=== PATIENT | male | born 1965 | race Caucasian/White ===

== ENCOUNTER 2016-12-22 21:21 | Emergency (ER) | payer MEDICARE, OTHER ==
--- NOTE | 2016-12-22 22:45 | ED ---
General Adult HPI - General Chief complaint: Abdominal Pain Stated complaint: Abd pain Source: patient, family, RN notes reviewed Mode of arrival: ambulatory Limitations: physical limitation - History of Present Illness Initial comments: Chief complaint and history of present illness this is a 51-year-old male who is deaf. He is here with his sister who helps translate for him. He is playing sports today when a softball hit him on his left upper quadrant area. Small bruise noted. Sister wants to get this area checked out. The patient had a splenectomy over 20 years ago. Cyst that states a splenectomy was done because it become enlarged. No fever no signs of infection. - Related Data Home Medications Medication Instructions Recorded Confirmed Aspirin 81 mg PO DAILY 08/24/14 12/22/16 Atenolol 100 mg PO HS 08/24/14 12/22/16 Multivitamin/Iron/Folic Acid 1 tab PO DAILY 08/24/14 12/22/16 [Centrum Complete Multivit Tab] Omeprazole [PriLOSEC] 20 mg PO HS 08/24/14 12/22/16 Tamsulosin HCl [Flomax] 0.4 mg PO BID 08/24/14 12/22/16 Cyclobenzaprine [Flexeril] 10 mg PO HS 03/21/15 12/22/16 Docusate [Colace] 100 mg PO HS 03/21/15 12/22/16 Lisinopril [Zestril] 10 mg PO DAILY 03/21/15 12/22/16 Loratadine [Claritin] 10 mg PO HS 03/21/15 12/22/16 Allergies Allergy/AdvReac Type Severity Reaction Status Date / Time No Known Allergies Allergy Verified 12/22/16 22:01 Review of Systems ROS Statement: Those systems with pertinent positive or pertinent negative responses have been documented in the HPI. Review of systems; through his sister he had no complaints. Not even complaining of the bruise on his left upper quadrant. No fever. No change in appetite. Past medical problems GERD, , hyperlipidemia, hypertension, prostate disorder, spinal stenosis. Surgeries eye surgery and splenectomy. Also has a history of cerebral palsy. Family history noncontributory no known ALLERGIES. Nonsmoker nondrinker ROS Other: All systems not noted in ROS Statement are negative. Past Medical History Past Medical History: GERD/Reflux, Hearing Disorder / Deafness, Hyperlipidemia, Hypertension, Prostate Disorder Additional Past Medical History / Comment(s): spinal stenosis, deaf, hepatitis History of Any Multi-Drug Resistant Organisms: None Reported Additional Past Surgical History / Comment(s): splenectomy, eye surgery Past Psychological History: No Psychological Hx Reported Smoking Status: Never smoker Past Alcohol Use History: None Reported Past Drug Use History: None Reported General Exam - General Exam Comments Initial Comments: General: The patient is awake and alert, in no distress, and does not appear acutely ill. Uses sign language for his sister to interpret. Vital signs temperature 97.8 pulse 104 respiratory rate 20 pulse ox 95% room air blood pressure 163/77 Eye: Pupils are equal, , extra-ocular movements are intact; there is normal conjunctiva bilaterally. No signs of icterus. Ears, nose, mouth and throat: There are moist mucous membranes Neck: The neck is supple, there is no tenderness Cardiovascular: There is a regular rate and rhythm. No murmur, rub or gallop is appreciated. Respiratory: Lungs are clear to auscultation, respirations are non-labored, breath sounds are equal. No wheezes, stridor, rales, or rhonchi. Gastrointestinal: Soft, non-distended, non-tender abdomen without masses or organomegaly noted. There is no rebound or guarding present. No CVA tenderness. Bowel sounds are unremarkable. Small area of bruising near his surgical scar post splenectomy. No pain with deep palpation no masses palpable. No appreciable hematoma appreciated. Normal bowel sounds. Back: No back pain Normal ROM, no tenderness, chronic nonpitting swollen legs for 10 years per sister. Neurological: Sister has not noticed any change in neurological symptoms.. Patient does have a history of cerebral palsy though. Skin: Bruise, ecchymotic area near splenectomy incision site. Splenectomy was over 20 years ago. Limitations: physical limitation Course Vital Signs 12/22/16 21:43 Temperature 97.8 F Pulse Rate 104 H Respiratory 20 Rate Blood Pressure 163/77 O2 Sat by Pulse 95 Oximetry Medical Decision Making - Medical Decision Making Cyst was told to examine and reexamined the area. There is no fever or signs of infection. I discussed stress with the sister that she have fever or any signs of infection having had a splenectomy all the more important for him to be seen by family physician or emergency room immediately. Disposition Clinical Impression: Superficial bruising of abdominal wall Disposition: HOME SELF-CARE Condition: Stable Instructions: Contusion in Adults (ED) Additional Instructions: Apply ice on again off again for 1 day and then heat. Tylenol for discomfort. Follow-up family physician emergency room as needed Referrals: Marko Gutierres DO [Primary Care Provider] - 1-2 days Time of Disposition: 22:46
[2016-12-22 22:59] VITALS: BP 138/72; PULSE 90; RESP 18; TEMP 98.7
== END 2016-12-22 22:59 | disposition home or self-care (01) ==
LOC: EC 21:21
DX: S30.1XXA Contusion of abdominal wall, initial encounter (principal); H91.90 Unspecified hearing loss, unspecified ear; I10 Essential (primary) hypertension; K21.9 Gastro-esophageal reflux disease without esophagitis; N42.9 Disorder of prostate, unspecified; G80.9 Cerebral palsy, unspecified; Z79.82 Long term (current) use of aspirin; Z79.899 Other long term (current) drug therapy; Z90.81 Acquired absence of spleen; W21.07XA Struck by softball, initial encounter; Y92.89 Other specified places as the place of occurrence of the external cause
CPT/HCPCS: 99283

== ENCOUNTER → 2017-05-12 | Outpatient (CLI) | payer MEDICARE, OTHER ==
--- NOTE | 2017-05-12 17:05 | XR ---
Cervical spine HISTORY: Neck pain 5 views of the cervical spine and 6 images Comparison the cervical spine MRI dated 07/17/2014 There is multilevel facet arthropathy. Hypertrophic changes are again noted, loss of disc height is p resent at the intervertebral levels. Vertebral body height and alignment is stable. Multilevel forami nal encroachment is present. IMPRESSION: Similar findings, degenerative disc disease, facet arthropathy, multilevel foraminal encr oachment.
== END | disposition home or self-care (01) ==
LOC: RADXRMAIN 16:39
PROVIDERS: ATTEND Family Medicine
DX: M50.30 Other cervical disc degeneration, unspecified cervical region (principal); M46.82 Other specified inflammatory spondylopathies, cervical region
CPT/HCPCS: 72050

== ENCOUNTER → 2017-07-21 | Outpatient (CLI) | payer MEDICARE, OTHER ==
--- NOTE | 2017-07-21 17:06 | CT ---
EXAMINATION TYPE: CT cervical spine wo con DATE OF EXAM: 07/21/2017 COMPARISON: NONE HISTORY: Neck pain with numbness going down bilateral shoulders and arms. CT DLP: 819.5 mGycm. Automated Exposure Control for Dose Reduction was Utilized. TECHNIQUE: CT scan of the cervical spine is obtained without contrast, axial images are obtained, sa gittal and coronal reformatted images are also reviewed. FINDINGS: Cervical spine is visualized in its entirety from C1 through upper thoracic levels, demonst rates satisfactory alignment without evidence of acute fracture or dislocation. Prevertebral soft ti ssue appears within normal limits. The C1-C2 articulation is within normal limits on the coronal severiano ges. There is multifocal moderate degenerative change of the cervical spine. This is displayed is uncovert ebral hypertrophy, facet arthropathy, anterior osteophyte, intervertebral disc space narrowing and en dplate sclerosis. This is most severe at C2-C5. There is a focal reversal of the usual cervical lordo sis (mild degree) at these levels. Vacuum disc disease is also seen at C3-C4. The facets maintain alignment. Small posterior disc osteophyte complexes are seen at C2-C3, C3-C4 and C4-C5. There is resultant mild spinal canal stenosis at these levels. Additionally on the left at C5 -C6 there is mild neural foraminal narrowing and moderate neural foraminal narrowing at C4-C5 and C5- C6 on the right. The lung apices are well aerated. Incidentally the anterior arch of C1 appears to be fused with the c livus and may be related to old remote injury or degenerative change. IMPRESSION: 1. There is no acute fracture or malalignment evident in the cervical spine. 2. Moderate multilevel degenerative disc disease of the cervical spine resulting in mild spinal canal stenosis from C2 through C5. Variable degree of neuroforaminal stenosis as described above. 3. Reversal usual cervical lordosis from C2 through C5, likely degenerative in nature. 4. Evaluation for focal disc herniation is better evaluated with MRI. MR could be performed for furth er evaluation if clinically indicated.
== END | disposition home or self-care (01) ==
LOC: RADCTMAIN 15:00
PROVIDERS: ATTEND Orthopaedic Surgery
DX: M48.02 Spinal stenosis, cervical region (principal); M50.00 Cervical disc disorder with myelopathy, unspecified cervical region; M99.71 Connective tissue and disc stenosis of intervertebral foramina of cervical region
CPT/HCPCS: 72125

== ENCOUNTER → 2017-10-20 | Outpatient (CLI) | payer MEDICARE, OTHER | END | disposition home or self-care (01) | LOC: LABWHC1 13:36 | PROVIDERS: ATTEND Orthopaedic Surgery | DX: Z01.812 Encounter for preprocedural laboratory examination (principal) | CPT/HCPCS: 87070 ==

== ENCOUNTER → 2018-08-30 | Outpatient (CLI) | payer OTHER, MEDICARE ==
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
== END | disposition home or self-care (01) ==
LOC: RADCTMAIN 16:35
PROVIDERS: ATTEND Family Medicine
DX: S06.0X9A Concussion with loss of consciousness of unspecified duration, initial encounter (principal)
CPT/HCPCS: 70450

== ENCOUNTER → 2020-08-28 | Outpatient (CLI) | payer MEDICARE, OTHER ==
--- NOTE | 2020-08-28 16:13 | XR ---
AP pelvis HISTORY: Low back pain frontal view of the pelvis submitted on 2 images correlated prior exam 03/21/2015 There is no interval change. Degenerative disc changes are noted in the lower lumbar spine. Joint spa alec, alignment, bone mineralization are normal. impression: Normal pelvis.
--- NOTE | 2020-08-28 16:16 | XR ---
Lumbar sacral spine HISTORY: Low back pain 5 views of lumbosacral spine There is no evident spondylolysis or spondylolisthesis. Suspect L5 is sacralized. Loss of disc height at L4-5 is present with associated vacuum phenomenon, lumbar vertebral bodies show preserved height and bone mineralization. There is hypertrophic spondylosis. Sclerosis is present in the posterior julianne ments. IMPRESSION: Degenerative disc disease, facet arthropathy, transitional vertebral body suspected, abhinav elate with plain film prior to any intervention.
== END ==
LOC: RADXRMAIN 12:56
PROVIDERS: ATTEND Family Medicine
DX: M51.37 Other intervertebral disc degeneration, lumbosacral region (principal); M47.817 Spondylosis without myelopathy or radiculopathy, lumbosacral region
CPT/HCPCS: 72110; 72170

== ENCOUNTER → 2022-02-14 | Outpatient (CLI) | payer MEDICARE, OTHER ==
--- NOTE | 2022-02-14 14:12 | CT ---
EXAMINATION TYPE: CT abdomen pelvis wo con DATE OF EXAM: 02/14/2022 COMPARISON: 03/21/2015 HISTORY: Upper abdominal pain, possible pancreatitis CT DLP: 1836.3 mGycm Examination of the solid and hollow viscera is limited given the lack of contrast. FINDINGS: LUNG BASES: No evidence for nodule. No evidence for infiltrate. LIVER/GB: The gallbladder is surgically absent. No space-occupying hepatic lesion. PANCREAS: No pancreatic mass identified. No inflammatory process seen. SPLEEN: No evidence for splenomegaly. No intrasplenic lesions seen. ADRENALS: No adrenal nodules identified. No evidence for thickening. KIDNEYS: 3.3 cm hypoattenuating lesion left kidney likely reflects a cyst. 4 mm nonobstructing calcul us upper pole left kidney. No hydronephrosis. BOWEL: Appendix has a normal appearance. No evidence of bowel obstruction. No inflammatory process. Lymph nodes: No evidence for adenopathy greater than 1 cm. Abdominal aorta: Atheromatous changes seen. No evidence for aneurysm. Genital organs: No significant abnormality. Other: No significant abnormality. IMPRESSION: 1. No CT evidence for pancreatitis at this time however correlate with amylase and lipase. 2. Nonobstructing nephrolithiasis.
== END | disposition home or self-care (01) ==
LOC: RADCTMAIN 11:49
PROVIDERS: ATTEND Family Medicine
DX: K85.90 Acute pancreatitis without necrosis or infection, unspecified (principal); N20.0 Calculus of kidney
CPT/HCPCS: 74176

== ENCOUNTER → 2022-05-29 | Outpatient (CLI) | payer MEDICARE, OTHER ==
[2022-05-29 22:36] LABS: HCT 44.7 % (39.6-50.0); HGB 14.5 g/dL (13.0-17.0); MCH 26.9 pg (27.0-32.0); MCHC 32.4 g/dL (32.0-37.0); MCV 82.8 fL (80.0-97.0); Mean Platelet Volume 10.9 fL (9.5-12.2); NRBC Per 100 WBC 0 /100 WBCS (0.0-0.0); Platelet Count 376 X 10*3/uL (140-440); RDW 16.8 % (11.5-14.5)
[2022-05-30 02:44] LABS: African American GFR (CKD) 86.8 (60.0-200.0); Anion Gap 12.3 mmol/L (10.00-18.00); Blood Urea Nitrogen 13.5 mg/dL (9.0-27.0); Carbon Dioxide 26.3 mmol/L (20.0-27.5); Non-African American GFR(CKD) 74.9 (60.0-200.0); Potassium 4.2 mmol/L (3.5-5.5)
== END | disposition home or self-care (01) ==
LOC: LABPAT 15:32
PROVIDERS: ATTEND Internal Medicine Interventional Cardiology
DX: Z01.812 Encounter for preprocedural laboratory examination (principal); R07.9 Chest pain, unspecified
CPT/HCPCS: 36415; 80051; 82565; 84520; 85027

== ENCOUNTER 2022-06-16 07:33 | Day surgery (SDC) | payer MEDICARE, OTHER ==
[2022-06-13 10:15] VITALS: BMI 42.2
[~2022-06-16 07:33] MED LIST: ALPRAZolam 0.25 MG TAB PO PRN; ALPRAZolam 0.5 MG TAB PO PRN; ASPIRIN 325 MG TAB PO STA; ATORVASTATIN 80 MG TAB PO STA; HEPARIN SODIUM,PORCINE 10,000 UNIT in SODIUM CHLORIDE 0.9% 1,000 ML IRRIGATION PRN; HEPARIN SODIUM,PORCINE 2,500 UNIT in SODIUM CHLORIDE 0.9% 250 ML IRRIGATION PRN; NITROGLYCERIN SL TABS 0.4 MG TAB SUBLINGUAL PRN; SODIUM CHLORIDE 0.9% 1,000 ML in EMPTY BAG 1 BAG IV SCH
[2022-06-16] MEDS ORDERED: ASPIRIN 325 MG TAB PO ONE (07:50)
[2022-06-16] MEDS ORDERED: ACETAMINOPHEN TAB 500 MG TAB PO ONE (07:51)
[2022-06-16] MEDS ORDERED: SODIUM CHLORIDE 0.9% 1,000 ML IV ONE (07:56)
[2022-06-16 08:03] VITALS: RESP 16; TEMP 98
[2022-06-16] MEDS ORDERED: VERAPAMIL 2.5 MG/ML 2 ML AMP ONE (09:24)
[2022-06-16] MEDS ORDERED: LIDOCAINE 1% INJ 10MG/ML (30 ML VIAL-PF) SQ ONE (09:43)
[2022-06-16] MEDS ORDERED: MIDAZOLAM 2 MG/2 ML VIAL IV ONE (09:43)
[2022-06-16] MEDS ORDERED: HEPARIN SODIUM 1,000 UN/ML (10ML VL) ONE (09:49)
[2022-06-16] MEDS ORDERED: fentaNYL (PF) 50 MCG/ML 2 ML AMP ONE (09:49)
[2022-06-16] MEDS ORDERED: VERAPAMIL SYRINGE (5 MG/10 ML) INTRAARTER ONE (09:50)
[2022-06-16] MEDS ORDERED: fentaNYL (PF) 50 MCG/ML 2 ML AMP IV ONE ×2 (09:50)
[2022-06-16] MEDS ORDERED: HEPARIN SODIUM 1,000 UN/ML (10ML VL) IV ONE (09:51)
[2022-06-16] MEDS ORDERED: IOPAMIDOL-370 125ML BTL INJ ONE ×2 (10:13)
[2022-06-16] MEDS ORDERED: RX INFO: IV CONTRAST WAS GIVEN 1 EACH MISC MISCELLANE PRN (10:17)
--- NOTE | 2022-06-16 10:21 | P.PCN ---
Date of Procedure: 06/16/22 Operative Findings: CARDIAC CATHETERIZATION PERFORMING PHYSICIAN: Avery Verde MD, RPVI PROCEDURE PERFORMED: 1. Selective right and left coronary angiogram 2. Left heart catheterization 3. An aortic root angiogram INDICATION: This is a 56-year-old gentleman with hypertension and dyslipidemia who was experiencing symptoms of chest discomfort. He underwent myocardial perfusion imaging stress to stent that revealed an inferior ischemia. In the light of that heart catheterization was advised COMPLICATION: None APPROACH: Right radial artery LEVEL OF SEDATION: Moderate with a sedation length of 22 minutes PROCEDURE DESCRIPTION: After obtaining an informed consent, the patient was brought to cardiac energy systems laboratory director. Local anesthesia was performed using lidocaine subcutaneously. The right radial artery was cannulated using Seldinger technique, the guidewire passed easily, following that we advanced a 5-Slovenian sheath dilator assembly, the wire and dilator were removed and sheath was flushed. Following that, 2 mg of verapamil along with 5000 unit heparin were given. Selective right and left coronary angiogram using a 6-Slovenian JR4 and JL 3.5 catheters. The left circumflex artery is coming from the right coronary cusp. Multipurpose catheter was used for that. Following that we did left heart catheterization using 6-Slovenian pigtail catheter. Because we had difficulties opacifying the left circumflex I did an aortic root angiogram The procedure was completed there was no complication. SELECTIVE CORONARY ANGIOGRAM: The right coronary artery: Large caliber vessel and nondominant dominant vessel. The RCA is aneurysmal distally but no occlusive disease seen. Left main: Not accessed. The left circumflex is coming from the right coronary cusp The left circumflex: Large caliber vessel. The LCx has an anomalous origin from the right coronary cusp. It has mild disease only. The left anterior descending artery: Large caliber vessel. The LAD is angiographically normal. Gives rises into 2 diagonal branches the appeared to be angiographically normal HEMODYNAMICS: LVEDP was 12 mmHg was no significant gradient across aortic valve CONCLUSION: 1. Mild nonobstructive coronary artery disease. 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 Normal left-sided filling pressure POSTPROCEDURE MANAGEMENT: Medical treatment and follow-up with the patient
[2022-06-16] MEDS ORDERED: SODIUM CHLORIDE 0.9% 1,000 ML IV SCH (10:30)
[2022-06-16 18:39] VITALS: BP 128/68; PULSE 86
== END 2022-06-16 15:40 | disposition home or self-care (01) ==
LOC: CATHCVL 07:33
PROVIDERS: ATTEND Internal Medicine Interventional Cardiology
DX: I25.10 Atherosclerotic heart disease of native coronary artery without angina pectoris (principal); R07.89 Other chest pain; E78.5 Hyperlipidemia, unspecified; I10 Essential (primary) hypertension
CPT/HCPCS: 93458; C1769; C1894; J2250; J2001; J3010; J1644; Q9967

== ENCOUNTER → 2023-07-08 | Outpatient (CLI) | payer MEDICARE, OTHER ==
--- NOTE | 2023-07-08 11:54 | P.SLEEP ---
History of Present Illness DATE: 07/08/2023 CONSULTATION/NEW PATIENT EVALUATION HISTORY OF PRESENT ILLNESS/SLEEP-WAKE EVALUATION: 57-year-old gentleman had been evaluated in the sleep center for possible obstructive sleep apnea hypopnea syndrome. Patient is deaf, we will use straddle buggy operator to do history and physical and to explain patient the plan. SLEEP SCHEDULE: Usually sleep schedule from 10 PM to 6 AM. FALLING ASLEEP: Sometimes patient has difficulties with falling asleep, no TV in bedroom. DURING SLEEP: Patient usually sleeps on the side position and has witnessed episodes of stop breathing during the sleep according to his sister. Patient has loud snoring. Patient wakes up from sleep at least once with nocturia. No history of hypnogogical hallucinations, sleep paralysis, or cataplexy. DURING THE DAY/WAKE STATE: Patient feels sleepiness during the day. [place] sleepiness scale is significantly increased to 14. Patient takes at least 1 nap in the evening. PAST MEDICAL HISTORY: Hypertension, acid reflux, BPH, anxiety. PAST SURGICAL HISTORY: Recent low lumbar spine surgery, cholecystectomy, neck surgery, splenectomy. MEDICATIONS: Pepcid, atenolol 10 mg once a day, Flexeril, hydrochlorothiazide, iron supplement, Tamsulosin. SOCIAL HISTORY: Negative for smoking or using alcohol. FAMILY HISTORY: Hypertension. REVIEW OF SYSTEMS: Snoring, multiple awakenings from sleep, sleepiness during the day. No fevers. No double vision. No recent chest pain. No shortness of breath. No abdominal pain. No bleeding episodes. No blood in urine. No seizure episodes. PHYSICAL EXAMINATION: GENERAL: A pleasant patient without any distress. VITAL SIGNS: BP 114/75, HR 78, RR 16, weight 280 pounds, height 5 foot 9 inches, body mass index 41.3. HEENT: PERRLA, EOMI. Evaluation of oropharynx showed tongue protrudes midline, low position of soft palate Mallampati 4. NECK: Supple. No JVD. Thyroid is not palpable. 19.5 inches in circumference. LUNGS: Clear to percussion and to auscultation. Good air exchange. No wheezing or rhonchi. HEART: S1, S2 regular. No murmurs, gallops or rubs. ABDOMEN: Soft and nontender. Bowel sounds are present. No organomegaly appreciated. EXTREMITIES: No clubbing or cyanosis. SALMON TROLL FISHER: Awake, alert, and oriented x3. Cranial nerves 2 to 7 intact. There is no fasciculation or atrophy noted. No focal deficits observed. ASSESSMENT: 1. Loud snoring, witnessed episodes of stop breathing during the sleep, extremely low position of soft palate Mallampati 4, wide neck 19.5 inches in circumference, sleepiness [place] Sleepiness Scale is 14. Obstructive sleep apnea hypopnea syndrome. 2. Patient is deaf. 3. Obesity BMI 41.3. 4. Hypertension. 5 BPH. 6 . Acid reflux. 7. Status post recent low back surgery. 8. Status post cholecystectomy. 9 . Status post splenectomy in 1995. 10. Status post neck surgery. 11. Status post cyst removed from pericardium . PLAN: 1. Polysomnography for evaluation of patient's breathing during sleep. 2. CPAP/BiPAP titration if sleep study confirms obstructive sleep apnea- hypopnea syndrome. 3. Preferable position during sleep on the side. 4. No driving if patient feels any sleepiness. Patient is aware of civil and criminal liability for unsafe driving. 5. Sleep hygiene with regular sleep time for at least 7.5-8 hours. 6. Watching and losing weight. Thank you very much for referring this patient for consultation. Sincerely, Ad Terrazas MD, PhD, FAASM. 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 1 month hx of rt and left sided pain and pt communicating his heart hurt. recent testing done in [facility] office. recent elevated liver enzymes at [facility] ER) History of Any Multi-Drug Resistant Organisms: None Reported Past Surgical History: Cholecystectomy Additional Past Surgical History / Comment(s): splenectomy, eye surgery, cyst on rt side of heart removed. neck surgery w/screw Past Anesthesia/Blood Transfusion Reactions: No Reported Reaction Smoking Status: Never smoker - Past Family History Mother Family Medical History: Deep Vein Thrombosis (DVT) Additional Family Medical History / Comment(s): lymphedema in legs, blood clots in legs Father Family Medical History: Coronary Artery Disease (CAD), Diabetes Mellitus, Hyperlipidemia, Hypertension Additional Family Medical History / Comment(s): enlarged heart, rheumatic fever. was in the service. Medications and Allergies Home Medications Medication Instructions Recorded Confirmed Type Aspirin 81 mg PO DAILY 08/24/14 06/16/22 History Multivitamin/Iron/Folic Acid 1 tab PO DAILY 08/24/14 06/16/22 History [Centrum Complete Multivit Tab] Tamsulosin HCl [Flomax] 0.4 mg PO DAILY 08/24/14 06/16/22 History atenoloL 100 mg PO HS 08/24/14 06/16/22 History Cyclobenzaprine [Flexeril] 10 mg PO HS PRN 03/21/15 06/16/22 History Docusate [Colace] 100 mg PO HS 03/21/15 06/16/22 History Loratadine [Claritin] 10 mg PO HS 03/21/15 06/16/22 History lisinopriL [Zestril] 10 mg PO DAILY 03/21/15 06/16/22 History Famotidine [Pepcid] 20 mg PO HS 05/29/22 06/16/22 History Allergies Allergy/AdvReac Type Severity Reaction Status Date / Time No Known Allergies Allergy Verified 06/16/22 08:04 Sleep Note - Sleep Note Sleep Note: Temperature: Pulse Rate: Respiratory Rate: Blood Pressure: SpO2: Height: Weight: BMI: Neck Circumference:
== END ==
LOC: 3 N SLEEP 10:43
PROVIDERS: ATTEND Internal Medicine
DX: G47.33 Obstructive sleep apnea (adult) (pediatric) (principal); E66.9 Obesity, unspecified; I10 Essential (primary) hypertension; N40.0 Benign prostatic hyperplasia without lower urinary tract symptoms; H91.3 Deaf nonspeaking, not elsewhere classified; K21.9 Gastro-esophageal reflux disease without esophagitis; R06.83 Snoring; Z98.890 Other specified postprocedural states; Z90.49 Acquired absence of other specified parts of digestive tract; Z90.81 Acquired absence of spleen; Z68.41 Body mass index [BMI] 40.0-44.9, adult; G47.10 Hypersomnia, unspecified; Z79.899 Other long term (current) drug therapy; Z79.82 Long term (current) use of aspirin
CPT/HCPCS: 99211

== ENCOUNTER 2023-08-11 19:36 | Outpatient (CLI) | payer MEDICARE, OTHER ==
--- NOTE | 2023-08-18 14:56 | P.PCN ---
Description of Procedure: POLYSOMNOGRAPHY REPORT PROCEDURE(S)/DATE(S): Polysomnography 08/11/2023 CLINICAL: Patient has been seen in the sleep center for evaluation of obstructive sleep apnea-hypopnea syndrome. Please see my consultation. Sleep study has been done for evaluation of patient breathing during the sleep. PROCEDURE: The standard montage for clinical polysomnography included the electroencephalogram, the electrooculogram, the mentalis surface electromyography and Lead II cardiography. The respiratory battery consisted of measurements of nasal/buccal air flow, pressure transducer measurements from nose, thoracic and/or abdominal effort and intercostal surface electromyography. Video monitoring has been done to check for any parasomnia events. Nocturnal oxyhemoglobin saturations were obtained by finger oximetry. Step-echavarria titration with positive airway pressure was utilized to control the respiratory events, if necessary. RESULTS: During the diagnostic sleep study sleep efficiency was decreased to 75.9 %. Latency to sleep onset was extremely long 81.5 min. Sleep architecture showed stage NI oh was slightly short 4.1 %, Delta sleep was borderline 5.0 %, REM sleep was slightly decreased to 16.6 %. Respiratory channel showed 0 obstructive apneas, 0 mixed apneas, 4 central apneas, 32 hypopneas with lowest oxygen level 63%. Oxygen level was below normal range for 5.5 minutes. Total apnea hypopnea index was 5.9. Heart rate was in the range between 68 and 77, average 72. EMG showed 20.3 periodic limb movements per hour with 1.3 micro-arousals per hour. IMPRESSIONS: 1. Obstructive sleep apnea hypopnea syndrome in mild range. Patient presently symptoms of significant excessive daytime sleepiness with [place] Sleepiness Scale 14. 2. Periodic limb movements have been documented. Please see other impressions from consultation PLAN: 1. The patient will have AutoPAP treatment for correction of respiratory abnormalities during the sleep. 2. Losing weight program. 3. Sleep hygiene with regular time in bed for at least 7-1/2 hours. 4. No driving if feeling sleepiness. 5. Please check iron profile including ferritin level. Low level of iron may increase the risk for periodic limb movements. 6. I will see patient for follow-up visit to evaluate clinical response on treatment with CPAP, compliance with treatment and make any necessary adjustment related to mask fitting pressure and humidification. Thank you very much for allowing me to participate in the management of your patient. Sincerely, Ad Terrazas MD, PhD, FAASM. Diplomat of [place] [employer], Sleep Medicine Board by [place] [employer] [facility] [place]
== END 2023-08-12 06:00 | disposition home or self-care (01) ==
LOC: 3 N SLEEP 19:36
PROVIDERS: ATTEND Internal Medicine
DX: G47.33 Obstructive sleep apnea (adult) (pediatric) (principal); G47.61 Periodic limb movement disorder; G47.10 Hypersomnia, unspecified; Z79.82 Long term (current) use of aspirin
CPT/HCPCS: 95810

== ENCOUNTER 2023-08-25 18:11 | Emergency (ER) | payer MEDICARE, OTHER ==
--- NOTE | 2023-08-25 18:27 | ED ---
Back Pain HPI - General Source: patient, family Mode of arrival: wheelchair Limitations: language barrier <Madan Lopez - Last Filed: 08/25/23 18:26> - General Source: patient, family Mode of arrival: wheelchair Limitations: language barrier (Sister is present and provides sign language) <Luke Farias - Last Filed: 08/25/23 20:45> <Phillip Davis - Last Filed: 08/25/23 23:00> - General Chief Complaint: Back Pain/Injury Stated Complaint: back pain Time Seen by Provider: 08/25/23 18:26 - History of Present Illness Initial Comments: 57-year-old male presenting with chief complaint of back pain. Patient has history of a recent lower back surgery. Sister states that he had a fall last week and has had increased pain (Madan Lopez) Patient is a pleasant 57-year-old male presenting to the emergency department with sister with concern for back pain. Patient is a poor historian. Patient does do sign language however sometimes does not communicate with sister because he does not feel like it. Patient does have history of back surgery 4 months ago. Patient did fall back into a wall a week ago. Patient has been having some discomfort the past few days that seems positional and intermittent. Patient denies any discomfort at this time. No reported head injury or loss of consciousness (Luke Farias) - Related Data Home Medications Medication Instructions Recorded Confirmed Aspirin 81 mg PO DAILY 08/24/14 06/16/22 Multivitamin/Iron/Folic Acid 1 tab PO DAILY 08/24/14 06/16/22 [Centrum Complete Multivit Tab] Tamsulosin HCl [Flomax] 0.4 mg PO DAILY 08/24/14 06/16/22 atenoloL 100 mg PO HS 08/24/14 06/16/22 Cyclobenzaprine [Flexeril] 10 mg PO HS PRN 03/21/15 06/16/22 Docusate [Colace] 100 mg PO HS 03/21/15 06/16/22 Loratadine [Claritin] 10 mg PO HS 03/21/15 06/16/22 lisinopriL [Zestril] 10 mg PO DAILY 03/21/15 06/16/22 Famotidine [Pepcid] 20 mg PO HS 05/29/22 06/16/22 Allergies Allergy/AdvReac Type Severity Reaction Status Date / Time No Known Allergies Allergy Verified 06/16/22 08:04 Review of Systems ROS Other: All systems not noted in ROS Statement are negative. <Madan Lopez - Last Filed: 08/25/23 18:26> ROS Other: All systems not noted in ROS Statement are negative. Constitutional: Denies: fever Eyes: Denies: eye pain Musculoskeletal: Reports: as per HPI, back pain <Luek Farias - Last Filed: 08/25/23 20:45> ROS Other: All systems not noted in ROS Statement are negative. <SusanPhillip Jaison - Last Filed: 08/25/23 23:00> ROS Statement: Those systems with pertinent positive or pertinent negative responses have been documented in the HPI. 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 1 month hx of rt and left sided pain and pt communicating his heart hurt. recent testing done in [facility] office. recent elevated liver enzymes at [facility] ER) History of Any Multi-Drug Resistant Organisms: None Reported Past Surgical History: Cholecystectomy Additional Past Surgical History / Comment(s): splenectomy, eye surgery, cyst on rt side of heart removed. neck surgery w/screw Past Anesthesia/Blood Transfusion Reactions: No Reported Reaction Past Psychological History: No Psychological Hx Reported Smoking Status: Never smoker Past Alcohol Use History: None Reported Past Drug Use History: None Reported - Past Family History Mother Family Medical History: Deep Vein Thrombosis (DVT) Additional Family Medical History / Comment(s): lymphedema in legs, blood clots in legs Father Family Medical History: Coronary Artery Disease (CAD), Diabetes Mellitus, Hyperlipidemia, Hypertension Additional Family Medical History / Comment(s): enlarged heart, rheumatic fever. was in the service. <Madan Lopez - Last Filed: 08/25/23 18:26> General Exam Limitations: language barrier <Madan Lopez - Last Filed: 08/25/23 18:26> Limitations: language barrier General appearance: alert, in no apparent distress Head exam: Present: atraumatic, normocephalic Eye exam: Present: normal appearance Neck exam: Present: normal inspection. Absent: tenderness Respiratory exam: Present: normal lung sounds bilaterally Cardiovascular Exam: Present: regular rate, normal rhythm Expanded Peripheral pulses: 2+: Posterior Tibialis (R), Posterior Tibialis (L) GI/Abdominal exam: Present: soft. Absent: distended, tenderness, guarding, rebound, rigid Extremities exam: Present: normal inspection, full ROM. Absent: tenderness Back exam: Present: normal inspection. Absent: tenderness, vertebral tenderness Neurological exam: Present: alert. Absent: motor sensory deficit Psychiatric exam: Present: normal affect, normal mood Skin exam: Present: normal color <Luke Farias - Last Filed: 08/25/23 20:45> - General Exam Comments Initial Comments: Visual Physical Exam Vital signs reviewed General: Well-appearing, nontoxic, no acute distress. Head: Normocephalic, atraumatic Eyes: PERRLA, EOMI ENT: Airway patent Chest: Nonlabored breathing Skin: No visual rash, normal skin tone Neuro: Alert and oriented 3 Musculoskeletal: No gross abnormalities (Madan Lopez) Course Vital Signs 08/25/23 08/25/23 08/25/23 18:16 20:28 21:00 Temperature 98.1 F Pulse Rate 96 84 91 Respiratory 18 18 18 Rate Blood Pressure 127/70 128/70 125/87 O2 Sat by Pulse 98 100 99 Oximetry Medical Decision Making <Madan Lopez - Last Filed: 08/25/23 18:26> <Luke Farias - Last Filed: 08/25/23 20:45> <Phillip Davis - Last Filed: 08/25/23 23:00> - Medical Decision Making I performed the quick note portion of this visit, electronically signed Madan Lopez PA-C (Madan Lopez) Was pt. sent in by a medical professional or institution ([facility], [employer], urgent care, hospital, or half-way...) When possible be specific @ -[No] Did you speak to anyone other than the patient for history (EMS, parent, family, police, friend...)? What history was obtained from this source @ -Sister was present and helps provide history as patient is a poor historian and deaf Did you review nursing and triage notes (agree or disagree)? Why? @ -[I reviewed and agree with nursing and triage notes] Were old charts reviewed (outside hosp., previous admission, EMS record, old EKG, old radiological studies, urgent care reports/EKG's, half-way records)? Report findings @ -Previous x-rays reviewed Differential Diagnosis (chest pain, altered mental status, abdominal pain women, abdominal pain men, vaginal bleeding, weakness, fever, dyspnea, syncope, headache, dizziness, GI bleed, back pain, seizure, CVA, palpatations, mental health, musculoskeletal)? @ -Differential Back Pain: Strain, zoster, cauda equina syndrome, epidural abscess, vertebral osteomyelitis, discitis, fracture, subluxation, disc herniation, DJD, spinal stenosis, dissection, AAA, pancreatitis, peptic ulcer disease, pyelonephritis, kidney stone, this is not meant to be an all-inclusive list. EKG interpreted by me (3pts min.). @ -[As above] X-rays interpreted by me (1pt min.). @ -X-ray does show potential dislodgment of screw from the javier at the L5 CT interpreted by me (1pt min.). @ -[None done] U/S interpreted by me (1pt. min.). @ -[None done] What testing was considered but not performed or refused? (CT, X-rays, U/S, labs)? Why? @ -[None] What meds were considered but not given or refused? Why? @ -[None] Did you discuss the management of the patient with other professionals (professionals i.e. , PA, [employer], lab, RT, psych nurse, mental health social worker, analytics manager, teacher, national service officer, telephonic case manager)? Give summary @ -Case discussed with Dr. Frye, . He would like CT scan done. Was smoking cessation discussed for >3mins.? @ -[No] Was critical care preformed (if so, how long)? @ -[No] Were there social determinants of health that impacted care today? How? (Homelessness, low income, unemployed, alcoholism, drug addiction, transportation, low edu. Level, literacy, decrease access to med. care, group home, rehab)? @ -[No] Was there de-escalation of care discussed even if they declined (Discuss DNR or withdrawal of care, Hospice)? DNR status @ -[No] What co-morbidities impacted this encounter? (DM, HTN, Smoking, COPD, CAD, Cancer, CVA, ARF, Chemo, Hep., AIDS, mental health diagnosis, sleep apnea, morbid obesity)? @ -[None] Was patient admitted / discharged? Hospital course, mention meds given and route, prescriptions, significant lab abnormalities, going to OR and other pertinent info. @ -Patient reevaluated. Patient and family are updated. CT scan ordered. Patient will receive medications prior to this with plan for endorsement to next emergency physician to call Dr. An'Hue back with results (Luke Farias) CT lumbar spine shows loosening of hardware without acute fracture or subluxation. This is discussed with the patient's orthopedic surgeon Dr. Frye, he will arrange for follow-up tomorrow. The patient is provided CT of images performed. Sister is at bedside and who is agreeable with plan. (Phillip Davis) Disposition <Madan Lopez - Last Filed: 08/25/23 18:26> <Luke Farias - Last Filed: 08/25/23 20:45> Is patient prescribed a controlled substance at d/c from ED?: No Time of Disposition: 23:00 <Phillip Davis - Last Filed: 08/25/23 23:00> Clinical Impression: Back pain Disposition: HOME SELF-CARE Condition: Fair Instructions (If sedation given, give patient instructions): Acute Low Back Pain (ED) Additional Instructions: Please follow-up with , as planned tomorrow. Referrals: Marko Gutierres DO [Primary Care Provider] - 1-2 days
[2023-08-25 18:36] VITALS: RESP 18; TEMP 98.1
--- NOTE | 2023-08-25 19:55 | XR ---
EXAMINATION TYPE: XR lumbar spine 2 or 3V DATE OF EXAM: 08/25/2023 7:22 PM CLINICAL INDICATION:Male, 57 years old with history of surgery, fall; COMPARISON: Presurgical radiographs. TECHNIQUE: XR lumbar spine 2 or 3V - Frontal, lateral and coned in L5-S1 lateral views of the spine. FINDINGS: Multilevel degeneration changes throughout the spine. There is at least one screw in L5 migue t does not connect to the right. No evidence of fracture. Multilevel osteophyte formation of the vert ebral bodies with facet joint arthropathy. IMPRESSION: 1. No acute fracture. 2. Post fixation changes to the spine there is at least one screw in L5 that does not appear to conne ct to the rods on lateral view.
[2023-08-25] MEDS: KETOROLAC 15 MG/ML 1 ML VIAL IM STA (20:58)
[2023-08-25] MEDS: MORPHINE SULFATE 4 MG/ML SYRINGE IM STA (21:04)
[2023-08-25 21:25] VITALS: BP 125/87; PULSE 91
--- NOTE | 2023-08-25 22:17 | CT ---
EXAMINATION TYPE: CT lumbar spine wo con CT DLP: 1784.6 mGycm, Automated exposure control for dose reduction was used. DATE OF EXAM: 08/25/2023 9:42 PM COMPARISON: 03/18/2015, 02/14/2022. CLINICAL INDICATION:Male, 57 years old with history of Low back pain TECHNIQUE: Multiple axial images were obtained from the midportion of T11 through the sacroiliac erik nts. Soft tissue and bone windows in coronal and sagittal planes were obtained and reviewed. Contrast used: (None, if empty). Oral contrast used: (None, if empty). FINDINGS: Alignment: There are 5 lumbar type vertebral bodies within normal alignment. Bone: Postsurgical change at L3 L4 L5 and S1. There is lucency around the S1 screws bilaterally. The remainder of the hardware is intact. There is laminectomy changes at these levels. Extending from L3 through L5. No evidence of fracture. No evidence of significant spinal canal stenosis. There is disc bulging throughout the lumbar spine w ith varying degrees of neural foraminal stenosis worse at L5-S1 on the left with moderate to severe b ilateral neural foraminal stenosis. Other: Nonobstructing bilateral renal calculi measuring up to 4 mm on the right and 6 cm on the left. IMPRESSION: 1. No evidence for spinal fracture. No significant spinal canal stenosis identified. 2. Lucency around the L5 screws bilaterally suspicious for hardware loosening. 3. Degeneration changes throughout the lower spine with multilevel neural foraminal stenosis of moder ate moderate to severe severity.
== END 2023-08-25 23:17 | disposition home or self-care (01) ==
LOC: EC 18:11
DX: M54.50 Low back pain, unspecified (principal); I10 Essential (primary) hypertension; K21.9 Gastro-esophageal reflux disease without esophagitis; Z79.82 Long term (current) use of aspirin; Z79.899 Other long term (current) drug therapy
CPT/HCPCS: 72100; 72131; 99284; 96372 ×2; J2270; J1885

== ENCOUNTER → 2023-11-25 | Outpatient (CLI) | payer MEDICARE, OTHER ==
[2023-11-25 10:48] VITALS: BP 118/77; PULSE 81; RESP 16; TEMP 97.8
--- NOTE | 2023-11-25 11:31 | P.PROGSL ---
Subjective DATE: [] FOLLOW UP VISIT. Patient with obstructive sleep apnea hypopnea syndrome return to sleep center for follow-up visit. Recently patient had sleep study which documented obstructive sleep apnea hypopnea syndrome. Patient was initiated on PAP therapy and today is first visit after treatment was started. Patient is deaf, subsequently follow-up visit was done with the help of shift supervisor film processing. Patient was able to use PAP equipment every night for the whole night, but has difficulties related to the pressure. [place] sleepiness scale is increased to 13. While on treatment with CPAP blood pressure improved and amount of medications which patient taking for blood pressure significantly decreased.. I checked information from PAP unit. PAP unit pressure 5-15, average 13.5 cm H2O. Usage is 93% and 77% for more then 4 hours, average 7.3 hours per night. Leak is 19.3 l/m, which is in acceptable range. Apnea Hypopnea Index is 3.0, which is normal. Median the level of 1, EPR is 0. MEDICATIONS: Please see below During physical exam: GENERAL: A pleasant patient without any distress, on wheelchair, deaf. VITAL SIGNS: Please see below, weight 262.2 pounds. HEENT: PERRLA, EOMI.low position of soft palate, Mallapati 4 . NECK: Supple. No JVD. LUNGS: Clear to percussion and to auscultation. Good air exchange. No wheezing or rhonchi. HEART: S1, S2 regular. ABDOMEN: Soft and nontender. Slightly obese EXTREMITIES: No clubbing or cyanosis. TRANSITION SPECIALIST: Awake, alert, and oriented x3. No focal deficit. Impressions: 1. Obstructive sleep apnea-hypopnea syndrome. Patient demonstrated good compliance with treatment, benefiting from treatment. 2. Patient is deaf. 3. Obesity, patient lost 18 pounds since previous visit. 4. Hypertension. 5. BPH. 6. Acid reflux. 7. Status post low back surgery. 8. Status post splenectomy in 1995. 9. Status post cyst removed from pericardium. 10. Status post neck surgery. I teach the patient and family how to adjust temperature in humidifier. Temperature was adjusted to the level of 3. EPR was changed to the level of 3. A ramp, which was off, was changed to automatic. Patient tried to use CPAP unit in the office after adjustments. Plan: 1. Continue using PAP equipment every night for the whole night. 2. To change air filter at least 1-2 times per month. 3. PAP unit should stay lower then position of the head. 4. Advised patient to remove all remaining water from humidifier canister daily and make it dry after each usage. Refill canister with fresh distilled water before each usage. 5. Sleep hygiene with regular time in bed for at least 8 hours. 6. Precautions related to driving. No driving if feel any sleepiness. 7. I will maintain prescription for PAP supplies including mask, tube, filters. 8. Follow up visit in 3 months or earlier if patient has any problems. 9. Watching and losing weight. Thank you very much for allowing me to participate in the management of your patient. Ad Terrazas MD, PhD, FAASM. Diplomat of [place] [employer], Sleep Medicine Board by [place] [employer] Disease Intervention Specialist of [facility] [place] Objective - Vital Signs Vital Signs: Vital Signs Temp 97.8 F 11/25/23 10:47 Pulse 81 11/25/23 10:47 Resp 16 11/25/23 10:47 BP 118/77 11/25/23 10:47 Pulse Ox 96 11/25/23 10:47 FiO2 Home Medications: Home Medications Medication Instructions Recorded Confirmed Type Aspirin 81 mg PO DAILY 08/24/14 06/16/22 History Multivitamin/Iron/Folic Acid 1 tab PO DAILY 08/24/14 06/16/22 History [Centrum Complete Multivit Tab] Tamsulosin HCl [Flomax] 0.4 mg PO DAILY 08/24/14 06/16/22 History atenoloL 100 mg PO HS 08/24/14 06/16/22 History Cyclobenzaprine [Flexeril] 10 mg PO HS PRN 03/21/15 06/16/22 History Docusate [Colace] 100 mg PO HS 03/21/15 06/16/22 History Loratadine [Claritin] 10 mg PO HS 03/21/15 06/16/22 History lisinopriL [Zestril] 10 mg PO DAILY 03/21/15 06/16/22 History Famotidine [Pepcid] 20 mg PO HS 05/29/22 06/16/22 History
== END ==
LOC: 3 N SLEEP 10:01
PROVIDERS: ATTEND Internal Medicine
DX: G47.33 Obstructive sleep apnea (adult) (pediatric) (principal); H91.90 Unspecified hearing loss, unspecified ear; E66.9 Obesity, unspecified; N40.0 Benign prostatic hyperplasia without lower urinary tract symptoms; I10 Essential (primary) hypertension; K21.9 Gastro-esophageal reflux disease without esophagitis; Z98.890 Other specified postprocedural states; Z99.89 Dependence on other enabling machines and devices; Z79.899 Other long term (current) drug therapy
CPT/HCPCS: 99212

== ENCOUNTER → 2024-02-24 | Outpatient (CLI) | payer MEDICARE, OTHER ==
--- NOTE | 2024-02-24 11:47 | P.PROGSL ---
Subjective DATE: 02/24/2024 FOLLOW UP VISIT. Patient with obstructive sleep apnea hypopnea syndrome return to sleep center for follow-up visit. Information from previous visit have been reviewed. Patient is deaf, follow-up visit was done with the help of senior benefits manager. Patient is using PAP equipment every night for the whole night, getting PAP supplies in time. The patient does not have significant problems with the mask, PAP unit, patient complains of dryness in the mouth while using CPAP. [place] sleepiness scale is increased to 14. I checked information from PAP unit. PAP unit pressure 5-13, average 11.1 cm H2O. Usage is 96% , average 5.2 hours per night. Leak is increased to 35 l/m. Apnea Hypopnea Index is 2.9, which is normal. Humidity level is at 3. MEDICATIONS have been reviewed, please see below. During physical exam: GENERAL: A pleasant deaf patient on wheelchair. VITAL SIGNS: Please see below, weight is 256 lbs. HEENT: PERRLA, EOMI.low position of soft palate, Mallapati 4 . NECK: Supple. No JVD. LUNGS: Clear to percussion and to auscultation. Good air exchange. No wheezing or rhonchi. HEART: S1, S2 regular. ABDOMEN: Soft and nontender. Obese EXTREMITIES: No clubbing or cyanosis. MUSIC SPECIALIST: Awake, alert, and oriented x3. No focal deficit. Impressions: 1. Obstructive sleep apnea-hypopnea syndrome. Patient demonstrated good compliance with treatment, benefiting from treatment. 2. Obesity, patient lost 6 pounds comparing with previous visit. 3. Patient is deaf. 4. Hypertension. 5. BPH. 6. Acid reflux. 7. Status post low back surgery. 8. Status post splenectomy in 1995. 9. Status post neck surgery. 10. Status post cyst removed from pericardium. Level of humidity was adjusted up to 4. Plan: 1. Continue using PAP equipment every night for the whole night. 2. Sleep hygiene with regular time in bed for at least 7.5-8 hours 3. PAP unit should stay lower then position of the head. 4. Advised patient to remove all remaining water from humidifier canister daily and make it dry after each usage. Refill canister with fresh distilled water before each usage. 5. Watching weight. 6. Precautions related to driving. No driving if feel any sleepiness. 7. I will maintain prescription for PAP supplies including mask, tube, filters. 8. Follow up visit in 6 months or earlier if patient has any problems. Thank you very much for allowing me to participate in the management of your patient. Ad Terrazas MD, PhD, FAASM. Diplomat of [place] [employer], Sleep Medicine Board by [place] [employer] Nutrition Assistant of [facility] [place] Objective Home Medications: Home Medications Medication Instructions Recorded Confirmed Type Aspirin 81 mg PO DAILY 08/24/14 06/16/22 History Multivitamin/Iron/Folic Acid 1 tab PO DAILY 08/24/14 06/16/22 History [Centrum Complete Multivit Tab] Tamsulosin HCl [Flomax] 0.4 mg PO DAILY 08/24/14 06/16/22 History atenoloL 100 mg PO HS 08/24/14 06/16/22 History Cyclobenzaprine [Flexeril] 10 mg PO HS PRN 03/21/15 06/16/22 History Docusate [Colace] 100 mg PO HS 03/21/15 06/16/22 History Loratadine [Claritin] 10 mg PO HS 03/21/15 06/16/22 History lisinopriL [Zestril] 10 mg PO DAILY 03/21/15 06/16/22 History Famotidine [Pepcid] 20 mg PO HS 05/29/22 06/16/22 History
== END ==
LOC: 3 N SLEEP 11:03
PROVIDERS: ATTEND Internal Medicine
CPT/HCPCS: 99212

== ENCOUNTER → 2024-03-24 | Outpatient (CLI) | payer MEDICARE, OTHER ==
--- NOTE | 2024-03-28 13:35 | CT ---
EXAMINATION TYPE: CT lumbar spine wo con DATE OF EXAM: 03/24/2024 COMPARISON: 08/25/2023 HISTORY: Radiculopathy, lumbar region CT DLP: 1763.10 mGycm CONTRAST: None TECHNIQUE: CT of the lumbar spine is performed on a spiral scan at 3 mm thick sections. Reconstructed images are performed in the coronal and sagittal planes. FINDINGS: T11-T12: No focal disc herniation or significant disc bulge is evident. No spinal canal stenosis or neural foraminal stenosis is present. T12-L1: No focal disc herniation or significant disc bulge is evident. No spinal canal stenosis or neural foraminal stenosis is present. L1-L2: No focal disc herniation or significant disc bulge is evident. No spinal canal stenosis or n eural foraminal stenosis is present L2-L3: Minimal disc bulge is present with anterior thecal sac contact. Mild facet hypertrophy is pres ent. No spinal canal stenosis is present. Neural foramen are patent. L3: Pedicle screws are present. Beam hardening artifact limits evaluation to this level. L3-L4: Mild disc bulge is present. Laminectomies been performed. No spinal canal stenosis. Pseudomeni ngoceles posterior the surgery site. Differential could include seroma. L4-L5: L disc bulge is present with anterior thecal sac flattening. No spinal canal stenosis present. Laminectomy has been performed. L5-S1: No focal disc herniation or significant disc bulge is evident. No spinal canal stenosis. Fac et hypertrophy is present. Vertebral alignment appears normal. There is a nonobstructing 0.6 cm upper pole left renal calcification. Punctate inferior pole nonobstr ucting renal stone is present. Pseudomeningocele versus seroma posterior to the L3-4 to the L4-5 level measuring approximately 4.4 x 2.3 cm in size. This may been present previously in retrospect. The avila appear better visualized o n the current exam IMPRESSION: 1. Postsurgical changes lower lumbar spine may have the pseudomeningocele or seroma posterior to the L3 and L4 levels. 2. Postsurgical pedicle screws L3-S1. Disc spacers present L5-S1. The greatest foraminal narrowing is present at L5-S1 and at L4-5 on the left. Milder foraminal narrowing is present within the lower lum bar spine [facility], Workstation: [email or web address], 03/28/2024 1:32 PM
== END | disposition home or self-care (01) ==
LOC: RADCTMAIN 07:34
PROVIDERS: ATTEND Orthopaedic Surgery
DX: M54.16 Radiculopathy, lumbar region
CPT/HCPCS: 72131

== ENCOUNTER 2024-07-15 09:26 | Emergency (ER) | payer MEDICARE, OTHER ==
[2024-07-15 09:47] VITALS: RESP 16
--- NOTE | 2024-07-15 10:44 | ED ---
General Adult HPI - General Chief complaint: Weakness Stated complaint: Back pain Time Seen by Provider: 07/15/24 09:39 Source: patient, RN notes reviewed Mode of arrival: ambulatory Limitations: no limitations - History of Present Illness Initial comments: 58-year-old male presents to the emergency department for evaluation of weakness and fall. Patients sister reports that he took 2 falls at his day program yesterday. His sister reports that the witnesses at his day program feel that he got weak and slid down onto his left knee and his buttocks. Sister reports that he fell twice yesterday. She states that prior to this he has been acting as his typical self. Patient is denying any pain at this time. Denies recent fever, chills. Denies loss of bowel or bladder function, saddle anesthesia. Patient has a history of back surgery and his sister notes that one of the screws has come out of place in his fixation hardware and his surgeon is aware of this. - Related Data Home Medications Medication Instructions Recorded Confirmed Aspirin 81 mg PO DAILY 08/24/14 06/16/22 Multivitamin/Iron/Folic Acid 1 tab PO DAILY 08/24/14 06/16/22 [Centrum Complete Multivit Tab] Tamsulosin HCl [Flomax] 0.4 mg PO DAILY 08/24/14 06/16/22 atenoloL 100 mg PO HS 08/24/14 06/16/22 Cyclobenzaprine [Flexeril] 10 mg PO HS PRN 03/21/15 06/16/22 Docusate [Colace] 100 mg PO HS 03/21/15 06/16/22 Loratadine [Claritin] 10 mg PO HS 03/21/15 06/16/22 lisinopriL [Zestril] 10 mg PO DAILY 03/21/15 06/16/22 Famotidine [Pepcid] 20 mg PO HS 05/29/22 06/16/22 Allergies Allergy/AdvReac Type Severity Reaction Status Date / Time No Known Allergies Allergy Verified 07/15/24 09:35 Review of Systems ROS Statement: Those systems with pertinent positive or pertinent negative responses have been documented in the HPI. ROS Other: All systems not noted in ROS Statement are negative. 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 1 month hx of rt and left sided pain and pt communicating his heart hurt. recent testing done in [employer] office. recent elevated liver enzymes at [facility].( ER) History of Any Multi-Drug Resistant Organisms: None Reported Past Surgical History: Cholecystectomy Additional Past Surgical History / Comment(s): splenectomy, eye surgery, cyst on rt side of heart removed. neck surgery w/screw Past Anesthesia/Blood Transfusion Reactions: No Reported Reaction Past Psychological History: No Psychological Hx Reported Smoking Status: Never smoker Past Alcohol Use History: None Reported Past Drug Use History: None Reported - Past Family History Mother Family Medical History: Deep Vein Thrombosis (DVT) Additional Family Medical History / Comment(s): lymphedema in legs, blood clots in legs Father Family Medical History: Coronary Artery Disease (CAD), Diabetes Mellitus, Hyperlipidemia, Hypertension Additional Family Medical History / Comment(s): enlarged heart, rheumatic fever. was in the service. General Exam Limitations: language barrier General appearance: alert, in no apparent distress Head exam: Present: atraumatic, normocephalic, normal inspection Eye exam: Present: normal appearance, PERRL, EOMI. Absent: scleral icterus, conjunctival injection, periorbital swelling ENT exam: Present: normal exam, mucous membranes moist Respiratory exam: Present: normal lung sounds bilaterally. Absent: respiratory distress, wheezes, rales, rhonchi, stridor Cardiovascular Exam: Present: regular rate, normal rhythm, normal heart sounds. Absent: systolic murmur, diastolic murmur, rubs, gallop, clicks GI/Abdominal exam: Present: soft. Absent: distended, tenderness, guarding, rebound, rigid Extremities exam: Present: tenderness (Tenderness palpation of the left lateral knee), normal capillary refill Back exam: Present: full ROM, tenderness Neurological exam: Present: alert, oriented X3 Psychiatric exam: Present: normal affect, normal mood Skin exam: Present: warm, dry, intact, normal color. Absent: rash Course Vital Signs 07/15/24 07/15/24 07/15/24 09:29 09:47 13:40 Temperature 97.3 F L 98.1 F 98.8 F Pulse Rate 82 80 84 Respiratory 18 16 16 Rate Blood Pressure 118/71 113/60 111/66 O2 Sat by Pulse 99 96 97 Oximetry Medical Decision Making - Medical Decision Making Was pt. sent in by a medical professional or institution ([facility], SOLUTIONS ARCHITECT CONSULTANT, urgent care, hospital, or residential...) When possible be specific @ -No Did you speak to anyone other than the patient for history (EMS, parent, family, police, friend...)? What history was obtained from this source @ -Patient's sister provided some of the history of this patient Did you review nursing and triage notes (agree or disagree)? Why? @ -I reviewed and agree with nursing and triage notes Were old charts reviewed (outside hosp., previous admission, EMS record, old EKG, old radiological studies, urgent care reports/EKG's, residential records)? Report findings @ -No old charts were reviewed Differential Diagnosis (chest pain, altered mental status, abdominal pain women, abdominal pain men, vaginal bleeding, weakness, fever, dyspnea, syncope, headache, dizziness, GI bleed, back pain, seizure, CVA, palpatations, mental health, musculoskeletal)? @ -Differential Back Pain: Strain, zoster, cauda equina syndrome, epidural abscess, vertebral osteomyelitis, discitis, fracture, subluxation, disc herniation, DJD, spinal stenosis, dissection, AAA, pancreatitis, peptic ulcer disease, pyelonephritis, kidney stone, this is not meant to be an all-inclusive list. EKG interpreted by me (3pts min.). @ -None X-rays interpreted by me (1pt min.). @ -X-ray Chest shows no acute process X-ray of the lumbar spine shows no acute fracture, mild degenerative disc, one of the rods may be out of the L3 fixation screw X-ray of the left knee shows no acute fracture CT interpreted by me (1pt min.). @ -None done U/S interpreted by me (1pt. min.). @ -None done What testing was considered but not performed or refused? (CT, X-rays, U/S, labs)? Why? @ -None What meds were considered but not given or refused? Why? @ -None Did you discuss the management of the patient with other professionals (professionals i.e. [facility], SOLUTIONS ARCHITECT CONSULTANT, lab, RT, psych nurse, social insurance specialist, bone tender, te acher, credit products officer, case making machine operator)? Give summary @ -No Was smoking cessation discussed for >3mins.? @ -No Was critical care preformed (if so, how long)? @ -No Were there social determinants of health that impacted care today? How? (Homelessness, low income, unemployed, alcoholism, drug addiction, transportation, low edu. Level, literacy, decrease access to med. care, senior care, rehab)? @ -No Was there de-escalation of care discussed even if they declined (Discuss DNR or withdrawal of care, Hospice)? DNR status @ -No What co-morbidities impacted this encounter? (DM, HTN, Smoking, COPD, CAD, C ancer, CVA, ARF, Chemo, Hep., AIDS, mental health diagnosis, sleep apnea, morbid obesity)? @ -None Was patient admitted / discharged? Hospital course, mention meds given and route, prescriptions, significant lab abnormalities, going to OR and other pertinent info. @ -[Discharge. Patient presented to emergency department for evaluation of fall. Laboratory studies were obtained Revealing no significant leukocytosis; CMP nonactionable at this time; UA shows no evidence of infectious process. X- ray of the chest obtained revealing no acute process. X-ray of the lumbar spine was also obtained revealing no acute fracture or dislocation. There is concern for one of the rods being out of the L3 fixation screw patients sister endorses that there is a screw that is known to be out of place and therefore further imaging was not obtained. X-ray of the left knee was also obtained revealing no acute fracture or dislocation. Advised on findings and to follow-up with the patient's back specialist. Patient and family understand agreeable with plan. Patient stable at time of discharge. Case discussed with Dr. Segal. Undiagnosed new problem with uncertain prognosis? @ -No Drug Therapy requiring intensive monitoring for toxicity (Heparin, Nitro, Insulin, Cardizem)? @ -No Were any procedures done? @ -No Diagnosis/symptom? @ -Fall Acute, or Chronic, or Acute on Chronic? @ -Acute Uncomplicated (without systemic symptoms) or Complicated (systemic symptoms)? @ -Uncomplicated Side effects of treatment? @ -No Exacerbation, Progression, or Severe Exacerbation? @ -No Poses a threat to life or bodily function? How? (Chest pain, [place], DE, pneumonia, PE, COPD, DKA, ARF, appy, cholecystitis, CVA, Diverticulitis, Homicidal, Suicidal, threat to staff... and all critical care pts) @ -No - Lab Data Result diagrams: 07/15/24 10:45 07/15/24 10:45 Lab Results 07/15/24 07/15/24 07/15/24 Range/Units 10:45 10:45 10:45 WBC 7.3 (3.8-10.6) k/uL RBC 5.01 (4.30-5.90) m/uL Hgb 13.5 (13.0-17.5) gm/dL Hct 40.9 (39.0-53.0) % MCV 81.6 (80.0-100.0) fL MCH 27.0 (25.0-35.0) pg MCHC 33.1 (31.0-37.0) g/dL RDW 15.4 (11.5-15.5) % Plt Count 326 (150-450) k/uL MPV 7.8 Neutrophils % 52 % Lymphocytes % 29 % Monocytes % 8 % Eosinophils % 6 % Basophils % 0 % Neutrophils # 3.8 (1.3-7.7) k/uL Lymphocytes # 2.1 (1.0-4.8) k/uL Monocytes # 0.6 (0-1.0) k/uL Eosinophils # 0.4 (0-0.7) k/uL Basophils # 0.0 (0-0.2) k/uL Sodium 138 (137-145) mmol/L Potassium 4.1 (3.5-5.1) mmol/L Chloride 101 (98-107) mmol/L Carbon Dioxide 30 (22-30) mmol/L Anion Gap 7 mmol/L BUN 16 (9-20) mg/dL Creatinine 1.14 (0.66-1.25) mg/dL Est GFR (CKD-EPI)AfAm 83 (>60 ml/min/1.73 sqM) Est GFR (CKD-EPI)NonAf 72 (>60 ml/min/1.73 sqM) Glucose 88 (74-99) mg/dL Calcium 9.2 (8.4-10.2) mg/dL Total Bilirubin 1.2 (0.2-1.3) mg/dL AST 42 (17-59) U/L ALT 30 (4-49) U/L Alkaline Phosphatase 111 (38-126) U/L Total Protein 6.8 (6.3-8.2) g/dL Albumin 3.8 (3.5-5.0) g/dL Urine Color Light Yellow Urine Appearance Clear (Clear) Urine pH 7.0 (5.0-8.0) Ur Specific [place] 1.022 (1.001-1.035) Urine Protein Negative (Negative) Urine Glucose (UA) Negative (Negative) Urine Ketones Negative (Negative) Urine Blood Negative (Negative) Urine Nitrite Negative (Negative) Urine Bilirubin Negative (Negative) Urine Urobilinogen <2.0 (<2.0) mg/dL Ur Leukocyte Esterase Negative (Negative) Disposition Clinical Impression: Fall, Knee pain Disposition: HOME SELF-CARE Condition: Stable Instructions (If sedation given, give patient instructions): Fall Prevention (ED) Additional Instructions: Please follow up with your back specialist and primary care provider. Return to the emergency department for new or worsening symptoms. Is patient prescribed a controlled substance at d/c from ED?: No Referrals: Marko Gutierres DO [Primary Care Provider] - 1-2 days
[2024-07-15 11:05] LABS: Appearance,Urine Clear (Clear); Bilirubin,Urine Negative (Negative); Blood,Urine Negative (Negative); Color,Urine Light Yellow; Glucose,Urine (UA) Negative (Negative); Ketones,Urine Negative (Negative); Leukocyte Esterase,Urine Negative (Negative); Nitrite,Urine Negative (Negative); Protein,Urine Negative (Negative); Specific Gravity,Urine 1.022 (1.001-1.035); Urobilinogen,Urine <2.0 mg/dL (<2.0)
[2024-07-15 11:07] LABS: Basophils % (A) 0 %; Eosinophils # (A) 0.4 k/uL (0-0.7); Eosinophils % (A) 6 %; HCT 40.9 % (39.0-53.0); HGB 13.5 gm/dL (13.0-17.5); Lymphocytes # (A) 2.1 k/uL (1.0-4.8); Lymphocytes % (A) 29 %; MCHC 33.1 g/dL (31.0-37.0); MCV 81.6 fL (80.0-100.0); Mean Platelet Volume 7.8; Monocytes # (A) 0.6 k/uL (0-1.0); Monocytes % (A) 8 %; Neutrophils # (A) 3.8 k/uL (1.3-7.7); Neutrophils % (A) 52 %; Platelet Count 326 k/uL (150-450); RBC 5.01 m/uL (4.30-5.90); RDW 15.4 % (11.5-15.5); WBC 7.3 k/uL (3.8-10.6)
[2024-07-15 11:22] LABS: ALT 30 U/L (4-49); AST 42 U/L (17-59); African American GFR (CKD) 83 (>60 ml/min/1.73 sqM); Albumin 3.8 g/dL (3.5-5.0); Alkaline Phosphatase 111 U/L (38-126); Anion Gap 7 mmol/L; Blood Urea Nitrogen 16 mg/dL (9-20); Calcium 9.2 mg/dL (8.4-10.2); Carbon Dioxide 30 mmol/L (22-30); Chloride 101 mmol/L (98-107); Glucose 88 mg/dL (74-99); Non-African American GFR(CKD) 72 (>60 ml/min/1.73 sqM); Potassium 4.1 mmol/L (3.5-5.1); Sodium 138 mmol/L (137-145); Total Bilirubin 1.2 mg/dL (0.2-1.3); Total Protein 6.8 g/dL (6.3-8.2)
--- NOTE | 2024-07-15 11:27 | XR ---
EXAMINATION TYPE: XR chest 2V DATE OF EXAM: 07/15/2024 11:23 AM COMPARISON: Chest radiographs from 03/21/2015 CLINICAL INDICATION: Male, 58 years old with history of fall; PHH pain TECHNIQUE: XR chest 2V Frontal and lateral views of the chest. FINDINGS: Lungs/Pleura: There is no evidence of pleural effusion, focal consolidation, or pneumothorax. Pulmonary vascularity: Unremarkable. Heart/mediastinum: Cardiomediastinal silhouette is unremarkable. Musculoskeletal: No acute osseous pathology. IMPRESSION: No acute cardiopulmonary disease/process. [facility], , 07/15/2024 11:25 AM
--- NOTE | 2024-07-15 11:36 | XR ---
EXAMINATION TYPE: XR knee complete LT DATE OF EXAM: 07/15/2024 11:23 AM COMPARISON: None CLINICAL INDICATION: Male, 58 years old with history of fall; PHH, pain TECHNIQUE: XR knee complete LT 3 views submitted. FINDINGS: No evidence of any acute osseous pathology, soft tissue swelling, or joint effusion is no annette. Tricompartmental osteophyte formation involving the femoral condyles, tibial plateau and patella . Mild joint space narrowing. IMPRESSION: 1. No acute osseous pathology. 2. Mild tricompartmental osteoarthritic changes. [facility], , 07/15/2024 11:34 AM
--- NOTE | 2024-07-15 11:38 | XR ---
EXAMINATION TYPE: XR lumbar spine 2 or 3V DATE OF EXAM: 07/15/2024 11:23 AM COMPARISON: 08/25/2023 CLINICAL INDICATION: Male, 58 years old with history of fall; PHH, pain TECHNIQUE: XR lumbar spine 2 or 3V - Frontal, lateral and coned in L5-S1 lateral views of the spine. FINDINGS: lateral view demonstrates a javier which closely approximates but does not enter the fixation screw at L3. The remainder of the hardware appears intact. Discectomy at L5-S1. Multilevel degenerati ve changes of the spine. No evidence of fracture. IMPRESSION: 1. No acute fracture. 2. Mild multilevel disc degeneration. 3. One of the rods may be out of the L3 fixation screw. Consider evaluation with CT imaging. [facility], , 07/15/2024 11:36 AM
--- NOTE | 2024-07-15 13:20 | XR ---
EXAMINATION TYPE: XR knee 4V LT DATE OF EXAM: 07/15/2024 1:14 PM COMPARISON: Same day radiographs CLINICAL INDICATION: Male, 58 years old with history of fall, sunrise; , pain TECHNIQUE: XR knee 4V LT 1 views submitted. FINDINGS: The patella is intact. Mild degeneration of the knee. IMPRESSION: No acute osseous pathology. [facility], , 07/15/2024 1:18 PM
[2024-07-15 13:41] VITALS: BP 111/66; PULSE 84; TEMP 98.8
== END 2024-07-15 14:21 | disposition home or self-care (01) ==
LOC: EC 09:26
DX: M25.562 Pain in left knee (principal); M54.9 Dorsalgia, unspecified
CPT/HCPCS: 36415; 71046; 72100; 80053; 81003; 85025; 99285

== ENCOUNTER → 2024-08-24 | Outpatient (CLI) | payer MEDICARE, OTHER ==
[2024-08-24 11:45] VITALS: BP 120/72; PULSE 77; RESP 18; TEMP 97.3
--- NOTE | 2024-08-24 12:21 | P.PROGSL ---
Subjective DATE: 08/24/2024 FOLLOW UP VISIT. Patient with obstructive sleep apnea hypopnea syndrome return to sleep center for follow-up visit. Patient is deaf, appointment have been done with the help of sign cloth packer. Information from previous visit have been reviewed. Patient is using PAP equipment every night for the whole night, getting PAP supplies in time. The patient does not have significant problems with the mask, PAP unit and humidification. Mason sleepiness scale is 5, which is normal. I checked information from PAP unit. PAP unit pressure 5-13, average 10.8 cm H2O. Usage is 87% , average 4 hours per night. Leak is 21.6 l/m, which is in acceptable range. Apnea Hypopnea Index is 2.7, which is normal. Temperature in the heated tube is only 62 degree. Position of CPAP unit is higher than head. MEDICATIONS have been reviewed, please see below. No changes in medications according to patient. During physical exam: Patient is on wheelchair GENERAL: A pleasant patient without any distress. VITAL SIGNS: Please see below, weight is 263.2 lbs. HEENT: PERRLA, EOMI.low position of soft palate, Mallapati [] . NECK: Supple. No JVD. LUNGS: Clear to percussion and to auscultation. Good air exchange. No wheezing or rhonchi. HEART: S1, S2 regular. ABDOMEN: Soft and nontender.[] EXTREMITIES: No clubbing or cyanosis. JUNK REMOVAL SPECIALIST: Awake, alert, and oriented x3. No focal deficit. Impressions: 1. Obstructive sleep apnea-hypopnea syndrome. Patient demonstrated good compliance with treatment, benefiting from treatment. 2. Patient is deaf. 3. Obesity, BMI 40.4, patient increased weight on 7 pounds comparing with previous visit. 4. Hypertension. 5. BPH. 6. Acid reflux. 7. Status post low back surgery. 8. Status post splenectomy. 9. Status post cyst removed from pericardium. 10. Status post neck surgery. I adjusted temperature and heated tube up to 80 degree and slightly decreased temperature and heated humidifier from the level 4 down to level 3. Plan: 1. Continue using PAP equipment every night for the whole night. 2. Sleep hygiene with regular time in bed for at least 7.5-8 hours 3. PAP unit should stay lower then position of the head. 4. Advised patient to remove all remaining water from humidifier canister daily and make it dry after each usage. Refill canister with fresh distilled water before each usage. 5. Watching weight. 6. Precautions related to driving. No driving if feel any sleepiness. 7. I will maintain prescription for PAP supplies including mask, tube, filters. 8. Follow up visit in 6 months or earlier if patient has any problems. Thank you very much for allowing me to participate in the management of your patient. Ad Terrazas MD, PhD, FAASM. Diplomat of [place] [employer], Sleep Medicine Board by [place] [employer] [facility] [place] Objective - Vital Signs Vital Signs: Vital Signs Temp 97.3 F L 08/24/24 11:44 Pulse 77 08/24/24 11:44 Resp 18 08/24/24 11:44 BP 120/72 08/24/24 11:44 Pulse Ox 97 08/24/24 11:44 FiO2 Intake & Output 08/23/24 08/24/24 08/24/24 18:59 06:59 18:59 Weight 119.351 kg Home Medications: Home Medications Medication Instructions Recorded Confirmed Type Aspirin 81 mg PO DAILY 08/24/14 06/16/22 History Multivitamin/Iron/Folic Acid 1 tab PO DAILY 08/24/14 06/16/22 History [Centrum Complete Multivit Tab] Tamsulosin HCl [Flomax] 0.4 mg PO DAILY 08/24/14 06/16/22 History atenoloL 100 mg PO HS 08/24/14 06/16/22 History Cyclobenzaprine [Flexeril] 10 mg PO HS PRN 03/21/15 06/16/22 History Docusate [Colace] 100 mg PO HS 03/21/15 06/16/22 History Loratadine [Claritin] 10 mg PO HS 03/21/15 06/16/22 History lisinopriL [Zestril] 10 mg PO DAILY 03/21/15 06/16/22 History Famotidine [Pepcid] 20 mg PO HS 05/29/22 06/16/22 History
== END ==
LOC: 3 N SLEEP 11:26
PROVIDERS: ATTEND Internal Medicine
DX: G47.33 Obstructive sleep apnea (adult) (pediatric) (principal); E66.9 Obesity, unspecified; I10 Essential (primary) hypertension; K21.9 Gastro-esophageal reflux disease without esophagitis; N40.0 Benign prostatic hyperplasia without lower urinary tract symptoms; Z68.41 Body mass index [BMI] 40.0-44.9, adult; Z90.81 Acquired absence of spleen; Z98.890 Other specified postprocedural states
CPT/HCPCS: 99212

== ENCOUNTER → 2024-11-11 | Outpatient (CLI) | payer MEDICARE, OTHER ==
[2024-11-11 15:46] LABS: Chol/HDL Ratio 5.75 Ratio; LDL Cholesterol,Calculated 110.1 mg/dL (0.0-131.0); Prostate Specific Antigen 0.82 ng/mL (0.000-3.500)
== END | disposition home or self-care (01) ==
LOC: LABWHC1 07:32
PROVIDERS: ATTEND Nurse Practitioner Family
DX: Z13.220 Encounter for screening for lipoid disorders (principal); Z13.6 Encounter for screening for cardiovascular disorders; N40.0 Benign prostatic hyperplasia without lower urinary tract symptoms
CPT/HCPCS: 36415; 80061; 83036; 84153

== ENCOUNTER 2024-12-09 12:18 | Emergency (ER) | payer MEDICARE, OTHER ==
[2024-12-09 12:36] VITALS: BP 103/69; PULSE 70; RESP 20; TEMP 97.4
--- NOTE | 2024-12-09 13:19 | ED ---
General Adult HPI - General Source: patient, family, RN notes reviewed Mode of arrival: ambulatory Limitations: language barrier <Emy Agee - Last Filed: 12/09/24 13:18> <Екатерина Toro - Last Filed: 12/09/24 19:26> - General Chief complaint: Recheck/Abnormal Lab/Rx Stated complaint: Left Chest Pain Time Seen by Provider: 12/09/24 12:30 - History of Present Illness Initial comments: Quick Note: This is a 59-year-old male who presents to the emergency department for redness and swelling to the right breast tissue. Family states that it started a few days ago. He saw his PCP who advised that it may be cellulitis and was going to order an ultrasound. However, family states that they are concerned because he is on a blood thinner and they are unsure if that may be contributing factor to this. Patient states that this is mildly uncomfortable. (Emy Agee) - Related Data Home Medications Medication Instructions Recorded Confirmed Aspirin 81 mg PO DAILY 08/24/14 06/16/22 Multivitamin/Iron/Folic Acid 1 tab PO DAILY 08/24/14 06/16/22 [Centrum Complete Multivit Tab] Tamsulosin HCl [Flomax] 0.4 mg PO DAILY 08/24/14 06/16/22 atenoloL 100 mg PO HS 08/24/14 06/16/22 Cyclobenzaprine [Flexeril] 10 mg PO HS PRN 03/21/15 06/16/22 Docusate [Colace] 100 mg PO HS 03/21/15 06/16/22 Loratadine [Claritin] 10 mg PO HS 03/21/15 06/16/22 lisinopriL [Zestril] 10 mg PO DAILY 03/21/15 06/16/22 Famotidine [Pepcid] 20 mg PO HS 05/29/22 06/16/22 Previous Rx's Medication Instructions Recorded Cephalexin [Keflex] 500 mg PO Q6HR #40 cap 12/09/24 Allergies Allergy/AdvReac Type Severity Reaction Status Date / Time No Known Allergies Allergy Verified 12/09/24 12:37 Review of Systems ROS Other: All systems not noted in ROS Statement are negative. <Emy Agee - Last Filed: 12/09/24 13:18> ROS Other: All systems not noted in ROS Statement are negative. <CortezЕкатерина Emeli - Last Filed: 12/09/24 19:26> ROS Statement: Those systems with pertinent positive or pertinent negative responses have been documented in the HPI. 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 1 month hx of rt and left sided pain and pt communicating his heart hurt. recent testing done in [facility] office. recent elevated liver enzymes at [facility].( ER) History of Any Multi-Drug Resistant Organisms: None Reported Past Surgical History: Cholecystectomy Additional Past Surgical History / Comment(s): splenectomy, eye surgery, cyst on rt side of heart removed. neck surgery w/screw Past Anesthesia/Blood Transfusion Reactions: No Reported Reaction Past Psychological History: No Psychological Hx Reported Smoking Status: Never smoker Past Alcohol Use History: None Reported Past Drug Use History: None Reported - Past Family History Mother Family Medical History: Deep Vein Thrombosis (DVT) Additional Family Medical History / Comment(s): lymphedema in legs, blood clots in legs Father Family Medical History: Coronary Artery Disease (CAD), Diabetes Mellitus, Hyperlipidemia, Hypertension Additional Family Medical History / Comment(s): enlarged heart, rheumatic fever. was in the service. <Emy Agee - Last Filed: 12/09/24 13:18> General Exam Limitations: no limitations <Emy Agee - Last Filed: 12/09/24 13:18> - General Exam Comments Initial Comments: Visual Physical Exam Vital signs reviewed General: Well-appearing, nontoxic, no acute distress. Head: Normocephalic, atraumatic Eyes: PERRLA, EOMI ENT: Airway patent Chest: Nonlabored breathing Skin: No visual rash, normal skin tone Neuro: Alert and oriented 3 Musculoskeletal: No gross abnormalities (Emy Agee) Course Vital Signs 12/09/24 12:33 Temperature 97.4 F L Pulse Rate 70 Respiratory 20 Rate Blood Pressure 103/69 O2 Sat by Pulse 99 Oximetry Medical Decision Making <Emy Agee - Last Filed: 12/09/24 13:18> - Lab Data Result diagrams: 12/09/24 15:22 12/09/24 15:22 <Екатерина Toro - Last Filed: 12/09/24 19:26> - Medical Decision Making I performed the QuickNote portion of this chart. Signed Emy Agee PA-C. (Emy Agee) Was pt. sent in by a medical professional or institution ([facility], TRAVELING [employer]IGHT [employer], urgent care, hospital, or half-way...) When possible be specific @ -[No] Did you speak to anyone other than the patient for history (EMS, parent, family, police, friend...)? What history was obtained from this source @ -[No] Did you review nursing and triage notes (agree or disagree)? Why? @ -[I reviewed and agree with nursing and triage notes] Were old charts reviewed (outside hosp., previous admission, EMS record, old EKG, old radiological studies, urgent care reports/EKG's, half-way records)? Report findings @ -[No old charts were reviewed] Differential Diagnosis (chest pain, altered mental status, abdominal pain women, abdominal pain men, vaginal bleeding, weakness, fever, dyspnea, syncope, headache, dizziness, GI bleed, back pain, seizure, CVA, palpatations, mental health, musculoskeletal)? @ -[not applicable] EKG interpreted by me (3pts min.). @ -Yes which demonstrates sinus rhythm with a rate of 70. UT interval 193. QRS 95. QTc of 401. No acute ST segment elevations or depressions X-rays interpreted by me (1pt min.). @ -[None done] CT interpreted by me (1pt min.). @ -[None done] U/S interpreted by me (1pt. min.). @ -[None done] What testing was considered but not performed or refused? (CT, X-rays, U/S, labs)? Why? @ -[None] What meds were considered but not given or refused? Why? @ -[None] Did you discuss the management of the patient with other professionals (professionals i.e. [facility], TRAVELING [employer]IGHT AGENT, lab, RT, psych nurse, social work program coordinator, rug sizer, teacher, health officer, supervisor case loading)? Give summary @ -[No] Was smoking cessation discussed for >3mins.? @ -[No] Was critical care preformed (if so, how long)? @ -[No] Were there social determinants of health that impacted care today? How? (Homelessness, low income, unemployed, alcoholism, drug addiction, transp ortation, low edu. Level, literacy, decrease access to med. care, half-way, rehab)? @ -[No] Was there de-escalation of care discussed even if they declined (Discuss DNR or withdrawal of care, Hospice)? DNR status @ -[No] What co-morbidities impacted this encounter? (DM, HTN, Smoking, COPD, CAD, Cancer, CVA, ARF, Chemo, Hep., AIDS, mental health diagnosis, sleep apnea, morbid obesity)? @ -[None] Was patient admitted / discharged? Hospital course, mention meds given and route, prescriptions, significant lab abnormalities, going to OR and other pertinent info. @ -[hospital course] Undiagnosed new problem with uncertain prognosis? @ -[No] Drug Therapy requiring intensive monitoring for toxicity (Heparin, Nitro, Insulin, Cardizem)? @ -[No] Were any procedures done? @ -[No] Diagnosis/symptom? @ -[default] Acute, or Chronic, or Acute on Chronic? @ -[default] Uncomplicated (without systemic symptoms) or Complicated (systemic symptoms)? @ -[default] Side effects of treatment? @ -[No] Exacerbation, Progression, or Severe Exacerbation? @ -[No] Poses a threat to life or bodily function? How? (Chest pain, USA, AR, pneumonia, PE, COPD, DKA, ARF, appy, cholecystitis, CVA, Diverticulitis, Homicidal, Suicidal, threat to staff... and all critical care pts) @ -[No] (Екатерина Toro) - Lab Data Lab Results 12/09/24 12/09/24 12/09/24 Range/Units 15:22 15:22 15:22 WBC 7.92 (4.50-10.00) 10*3/uL RBC 3.94 L (4.40-5.60) 10*6/uL Hgb 10.2 L (13.0-17.0) g/dL Hct 31.6 L (39.6-50.0) % MCV 80.2 (80.0-97.0) fL MCH 25.9 L (27.0-32.0) pg MCHC 32.3 (32.0-37.0) g/dL Plt Count 583 H (140-440) 10*3/uL MPV 9.2 L (9.5-12.2) fL Immature Gran % (Auto) 0.1 % Neutrophils % 44.7 % Lymphocytes % 33.7 % Monocytes % 12.6 % Eosinophils % 7.8 % Basophils % 1.1 % Immature Gran # 0.01 (0.00-0.04) 10*3/uL Neutrophils # 3.53 (1.80-7.70) 10*3/uL Lymphocytes # 2.67 (0.90-5.00) 10*3/uL Monocytes # 1.00 (0.20-1.00) 10*3/uL Eosinophils # 0.62 H (0.04-0.35) 10*3/uL Basophils # 0.09 (0.00-0.10) 10*3/uL Sodium 137 (137-145) mmol/L Potassium 3.8 (3.5-5.1) mmol/L Chloride 100 (98-107) mmol/L Carbon Dioxide 27 (22-30) mmol/L Anion Gap 10 mmol/L BUN 17 (9-20) mg/dL Creatinine 1.07 (0.66-1.25) mg/dL Est GFR (CKD-EPI)AfAm 89 (>60 ml/min/1.73 sqM) Est GFR (CKD-EPI)NonAf 77 (>60 ml/min/1.73 sqM) Glucose 94 (74-99) mg/dL Plasma Lactic Acid Ferdinand 1.7 (0.7-2.0) mmol/L Calcium 9.9 (8.4-10.2) mg/dL Total Bilirubin 0.5 (0.2-1.3) mg/dL AST 25 (17-59) U/L ALT 18 (4-49) U/L Alkaline Phosphatase 96 (38-126) U/L C-Reactive Protein 1.1 H (<1.0) mg/dL Total Protein 6.8 (6.3-8.2) g/dL Albumin 4.0 (3.5-5.0) g/dL Disposition <Vogley,Emy - Last Filed: 12/09/24 13:18> Is patient prescribed a controlled substance at d/c from ED?: No Time of Disposition: 16:35 <Екатерина Toro - Last Filed: 12/09/24 19:26> Clinical Impression: Mastitis Disposition: HOME SELF-CARE Condition: Stable Instructions (If sedation given, give patient instructions): Mastitis (ED) Additional Instructions: Take the Keflex as it is instructed. Do not take the ciprofloxacin that was previously prescribed. Follow-up with your doctor to ensure improvement and return for any new or worsening symptoms Prescriptions: Cephalexin [Keflex] 500 mg PO Q6HR #40 cap Referrals: Parminder Escobedo DO [Primary Care Provider] - 1-2 days
--- NOTE | 2024-12-09 13:52 | USB ---
Reason for Exam: Clinical finding. Technique: Method: Targeted. Findings: The lower outer quadrant of the right breast, the axilla of the right breast and the retroareolar of both breasts were scanned. A US of lower outer quadrants of the right breast , axilla and retro-areolar region were reviewed. Diffuse soft tissue edema. There is a retroareolar irregular density which likely is related to gynecomastia as there does appear to be evidence of gynecomastia by prior chest CT scan. Scanning of the left breast performed on a limited basis by the technologist reported there is a similar retroareolar density on the left. Therefore, gynecomastia is favored.. Would recommend a follow-up bone 3 month ultrasound.A US of lower outer quadrants of the right breast , axilla and retro-areolar region were reviewed. Diffuse soft tissue edema. There is a retroareolar irregular density which likely is related to gynecomastia as there does appear to be evidence of gynecomastia by prior chest CT scan. Scanning of the left breast performed on a limited basis by the technologist reported there is a similar retroareolar density on the left. Therefore, gynecomastia is favored.. Would recommend a follow-up bone 3 month ultrasound. IMPRESSION: Correlate for cellulitis versus soft tissue edema. Probable gynecomastia. Overall Assessment: Probably benign, BI-RAD 3 Management: Diagnostic Breast Ultrasound of the right breast in 3 months. A clinical breast exam by your physician is recommended on an annual basis and results should be correlated with mammographic findings. This exam should not preclude additional follow-up of suspicious palpable abnormalities. Results were given to the patient verbally at the time of exam. [facility], , 12/09/2024 1:49 PM. Electronically signed and approved by: Adelso Mendoza M.D. Radiologis
[2024-12-09 15:42] LABS: Basophils # (A) 0.09 10*3/uL (0.00-0.10); Basophils % (A) 1.1 %; Eosinophils # (A) 0.62 10*3/uL (0.04-0.35); Eosinophils % (A) 7.8 %; HCT 31.6 % (39.6-50.0); HGB 10.2 g/dL (13.0-17.0); Lymphocytes # (A) 2.67 10*3/uL (0.90-5.00); Lymphocytes % (A) 33.7 %; MCH 25.9 pg (27.0-32.0); MCHC 32.3 g/dL (32.0-37.0); MCV 80.2 fL (80.0-97.0); Mean Platelet Volume 9.2 fL (9.5-12.2); Monocytes % (A) 12.6 %; Neutrophils # (A) 3.53 10*3/uL (1.80-7.70); Neutrophils % (A) 44.7 %; Platelet Count 583 10*3/uL (140-440); RBC 3.94 10*6/uL (4.40-5.60); RDW 16.7 % (11.5-14.5); WBC 7.92 10*3/uL (4.50-10.00)
[2024-12-09 16:15] LABS: Anion Gap 10 mmol/L; Blood Urea Nitrogen 17 mg/dL (9-20); Carbon Dioxide 27 mmol/L (22-30); Chloride 100 mmol/L (98-107); Glucose 94 mg/dL (74-99); Potassium 3.8 mmol/L (3.5-5.1); Sodium 137 mmol/L (137-145)
[2024-12-09 16:16] LABS: ALT 18 U/L (4-49); AST 25 U/L (17-59); African American GFR (CKD) 89 (>60 ml/min/1.73 sqM); Alkaline Phosphatase 96 U/L (38-126); C Reactive Protein 1.1 mg/dL (<1.0); Calcium 9.9 mg/dL (8.4-10.2); Non-African American GFR(CKD) 77 (>60 ml/min/1.73 sqM); Total Bilirubin 0.5 mg/dL (0.2-1.3); Total Protein 6.8 g/dL (6.3-8.2)
== END 2024-12-09 17:01 | disposition home or self-care (01) ==
LOC: EC 12:18
DX: N61.0 Mastitis without abscess (principal)
CPT/HCPCS: 36415; 80053; 83605; 85025; 86140; 99285